=== PATIENT | male | born 1950 | race African-American/Black ===

== ENCOUNTER 2019-06-19 08:53 | Emergency (ER) | payer BC ==
[2019-06-19] MEDS ORDERED: Sodium Chloride 0.9% 10 ML SDV IV PRN (09:09)
[2019-06-19] MEDS ORDERED: Sodium Chloride 0.9% 2.5 ML Syringe FLUSH PRN (09:09)
[2019-06-19] MEDS ORDERED: Labetalol 100 MG/20 ML MDV IVPUSH ONE (09:09)
[2019-06-19] MEDS ORDERED: Sodium Chloride 0.9% 10 ML Syringe FLUSH PRN (09:09)
--- NOTE | 2019-06-19 09:13 | EDM.PDOC ---
ED HPI GENERAL MEDICAL PROBLEM - General Chief Complaint: Neuro Symptoms/Deficits Stated Complaint: STROKE Time Seen by Provider: 06/19/19 09:00 Source of Information: Reports: Patient History Limitations: Reports: No Limitations - History of Present Illness INITIAL COMMENTS - FREE TEXT/NARRATIVE: History of present illness: []Patient ambulated into the ED presenting with right-sided upper extremity feeling slow and clumsy and leg weakness that began at 7 PM last night before he went to bed. He has a history of hypertension but is not currently on medications and has not been for 7 years. He does take an aspirin daily but did not take one this morning. Patient denies having chest pain or headache he states he is a little bit short of breath but smokes 1-1/2 packs of cigarettes a day and this is not unusual for him. Has not noted any difficulty speaking but noted at 2:00 in the morning when he got up to go to the bathroom he could not walk and he actually fell. He denies hitting his head or having any of consciousness or any residual pain from the fall. He went back to bed and got up at 7 AM this morning and continued to have difficulty walking before he decided to come to the emergency room. Review of systems: As per history of present illness and below otherwise all systems reviewed and negative. Past medical history: As per history of present illness and as reviewed below otherwise noncontributory. Surgical history: As per history of present illness and as reviewed below otherwise noncontributory. Social history: No reported history of drug or alcohol abuse. Family history: As per history of present illness and as reviewed below otherwise noncontributory. Physical exam: General: Well developed, well nourished in NAD HEENT: Atraumatic, normocephalic, pupils reactive, negative for conjunctival pallor or scleral icterus, mucous membranes moist, throat clear, neck supple, nontender, trachea midline. Lungs: Clear to auscultation, breath sounds equal bilaterally, chest nontender. Heart: S1S2, regular, negative for clicks, rubs, or JVD. Abdomen: NABS, Soft, nondistended, nontender. Negative for masses or hepatosplenomegaly. Negative for costovertebral tenderness. Pelvis: Stable nontender. Genitourinary: Deferred. Rectal: Deferred. Extremities: Atraumatic, negative for cords or calf pain. Neurovascular unremarkable. Neuro: Awake, alert, oriented. Positive right-sided facial droop, right-sided weakness of upper extremity with a drift and mild weakness of left extremity Skin:warm and dry NIH=2 Diagnostics: EKG, CBC, chemistry, troponin, TSH (both CT scanners are down at this facility) Therapeutics: Labetalol 20 mg IV ED Course: Consulted Dr. Nation who requested we fly him to [facility] since he is in the time window for possible thrombectomy Consulted Tcjacinto Alston spoke with Dr. Goldsmith, accepts patient at 9:10 Impression: CVA, uncontrolled hypertension Prescriptions: none Plan: transfer to [facility] by air Definitive disposition and diagnosis as appropriate pending reevaluation and review of above. - Related Data Allergies Allergy/AdvReac Type Severity Reaction Status Date / Time No Known Allergies Allergy Verified 06/19/19 09:08 Home Meds: Home Meds Aspirin 81 mg PO DAILY 06/19/19 [History] ED ROS GENERAL - Review of Systems Review Of Systems: See Below ED EXAM, NEURO - Physical Exam Exam: See Below Course - Vital Signs Last Recorded V/S: Last Vital Signs Temp 97.7 F 06/19/19 09:39 Pulse 69 06/19/19 09:39 Resp 18 06/19/19 09:39 BP 186/135 H 06/19/19 09:39 Pulse Ox 95 06/19/19 09:39 - Orders/Labs/Meds Orders: Active Orders 24 hr Category Date Time Status Assess Neurological Status [RC] ASDIRECTED Care 06/19/19 09:09 Active Bedrest [RC] ASDIRECTED Care 06/19/19 09:09 Active Cardiac Monitoring [RC] . DIRECTED Care 06/19/19 09:09 Active EKG Documentation Completion [RC] STAT Care 06/19/19 09:09 Active Height and Weight [RC] UPON Care 06/19/19 09:09 Active Initiate Acute Stroke Protocol [RC] STAT Care 06/19/19 09:09 Active NIH Stroke Scale [RC] ASDIRECTED Care 06/19/19 09:09 Active Nursing Bedside Swallow Screen [RC] ASDIRECTED Care 06/19/19 09:09 Active Oxygen Therapy [RC] ASDIRECTED Care 06/19/19 09:09 Active Stroke Education, General [RC] Click to Edit Care 06/19/19 09:09 Active Vital Signs [RC] Q15M Care 06/19/19 09:09 Active Peripheral IV Insertion Adult [OM.PC] Stat Ot 06/19/19 09:09 Ordered Peripheral IV Insertion Adult [OM.PC] Stat [facility] 06/19/19 09:09 Ordered Saline Lock Insert [OM.PC] Stat [facility] 06/19/19 09:09 Ordered Labs: Laboratory Tests 06/19/19 06/19/19 06/19/19 Range/Units 09:35 09:35 09:35 WBC 6.86 (4.0-11.0) K/uL RBC 5.32 (4.50-5.90) M/uL Hgb 17.3 H (13.0-17.0) g/dL Hct 49.3 (38.0-50.0) % MCV 92.7 (80.0-98.0) fL MCH 32.5 H (27.0-32.0) pg MCHC 35.1 (31.0-37.0) g/dL RDW Std Deviation 51.2 (28.0-62.0) fl RDW Coeff of Nadia 15 (11.0-15.0) % Plt Count 162 (150-400) K/uL MPV 11.20 (7.40-12.00) fL Neut % (Auto) 64.9 (48.0-80.0) % Lymph % (Auto) 24.3 (16.0-40.0) % [place] % (Auto) 9.5 (0.0-15.0) % Eos % (Auto) 1.2 (0.0-7.0) % Baso % (Auto) 0.1 (0.0-1.5) % Neut # (Auto) 4.5 (1.4-5.7) K/uL Lymph # (Auto) 1.7 (0.6-2.4) K/uL [place] # (Auto) 0.7 (0.0-0.8) K/uL Eos # (Auto) 0.1 (0.0-0.7) K/uL Baso # (Auto) 0.0 (0.0-0.1) K/uL Nucleated RBC % 0.0 /100WBC Nucleated RBCs # 0 K/uL INR 0.96 APTT 25.3 (18.6-31.3) SEC Sodium 140 (136-148) mmol/L Potassium 3.8 (3.5-5.1) mmol/L Chloride 106 (98-107) mmol/L Carbon Dioxide 24.1 (21.0-32.0) mmol/L BUN 17 (7.0-18.0) mg/dL Creatinine 1.3 (0.8-1.3) mg/dL Est Cr Clr Drug Dosing 58.73 mL/min Estimated GFR (MDRD) > 60.0 ml/min Glucose 116 H (74-106) mg/dL Calcium 9.7 (8.5-10.1) mg/dL Total Bilirubin 0.4 (0.2-1.0) mg/dL AST 21 (15-37) IU/L ALT 31 (14-63) IU/L Alkaline Phosphatase 93 (46-116) U/L Troponin I < 0.050 (0.000-0.056) ng/mL Total Protein 7.6 (6.4-8.2) g/dL Albumin 3.6 (3.4-5.0) g/dL Globulin 4.0 (2.6-4.0) g/dL Albumin/Globulin Ratio 0.9 (0.9-1.6) TSH 3rd Generation 0.90 (0.36-3.74) uIU/mL Meds: Medications Discontinued Medications Generic Name Dose Route Start Last Admin Trade Name Freq PRN Reason Stop Dose Admin Labetalol HCl 20 mg 06/19/19 09:09 06/19/19 09:17 Normodyne IVPUSH 06/19/19 09:10 20 mg ONETIME ONE Administration Protocol Sodium Chloride 10 ml 06/19/19 09:09 Saline Flush FLUSH ASDIRECTED PRN Keep Vein Open Sodium Chloride 2.5 ml 06/19/19 09:09 Saline Flush FLUSH ASDIRECTED PRN Keep Vein Open Sodium Chloride 10 ml 06/19/19 09:09 Normal Saline IV ASDIRECTED PRN IV Use Departure - Departure Time of Disposition: 09:45 Disposition: DC/Tfer to Acute Hospital 02 Condition: Good Clinical Impression: Uncontrolled hypertension CVA (cerebral vascular accident) Qualifiers: CVA mechanism: unspecified Qualified Code(s): I63.9 - Cerebral infarction, unspecified - Discharge Information *PRESCRIPTION DRUG MONITORING PROGRAM REVIEWED*: Not Applicable *COPY OF PRESCRIPTION DRUG MONITORING REPORT IN PATIENT OZZY: Not Applicable Referrals: PCP,None [Primary Care Provider] - Forms: ED Department Discharge - My Orders Last 24 Hours: My Active Orders 06/19/19 09:09 Assess Neurological Status [RC] ASDIRECTED Bedrest [RC] ASDIRECTED Cardiac Monitoring [RC] . DIRECTED EKG Documentation Completion [RC] STAT Height and Weight [RC] UPON Initiate Acute Stroke Protocol [RC] STAT NIH Stroke Scale [RC] ASDIRECTED Nursing Bedside Swallow Screen [RC] ASDIRECTED Oxygen Therapy [RC] ASDIRECTED Stroke Education, General [RC] Click to Edit Vital Signs [RC] Q15M Peripheral IV Insertion Adult [OM.PC] Stat Peripheral IV Insertion Adult [OM.PC] Stat Saline Lock Insert [OM.PC] Stat - Assessment/Plan Last 24 Hours: My Active Orders 06/19/19 09:09 Assess Neurological Status [RC] ASDIRECTED Bedrest [RC] ASDIRECTED Cardiac Monitoring [RC] . DIRECTED EKG Documentation Completion [RC] STAT Height and Weight [RC] UPON Initiate Acute Stroke Protocol [RC] STAT NIH Stroke Scale [RC] ASDIRECTED Nursing Bedside Swallow Screen [RC] ASDIRECTED Oxygen Therapy [RC] ASDIRECTED Stroke Education, General [RC] Click to Edit Vital Signs [RC] Q15M Peripheral IV Insertion Adult [OM.PC] Stat Peripheral IV Insertion Adult [OM.PC] Stat Saline Lock Insert [OM.PC] Stat
[2019-06-19 10:16] LABS: BLOOD UREA NITROGEN,BUN 17 mg/dL (7.0-18.0); CARBON DIOXIDE,CO2 24.1 mmol/L (21.0-32.0); CHLORIDE,CL 106 mmol/L (98-107); GLUCOSE RANDOM 116 mg/dL (74-106); POTASSIUM,K 3.8 mmol/L (3.5-5.1); SODIUM,NA 140 mmol/L (136-148)
== END 2019-06-19 09:45 ==
LOC: MW.ED 08:53
DX: I69.392 Facial weakness following cerebral infarction (principal); I10 Essential (primary) hypertension; F17.210 Nicotine dependence, cigarettes, uncomplicated; Z79.82 Long term (current) use of aspirin
CPT/HCPCS: 36415; 80053; 84443; 84484; 85025; 85610; 85730; 93005; 96374; 99285; J3490; 99284